=== PATIENT | female | born 1980 | race Caucasian/White ===

== ENCOUNTER 2017-03-15 01:50 | Inpatient (IN) | payer BC ==
[~2017-03-15] VITALS: Ht 157.5 cm; Wt 64.1 kg
[~2017-03-15 01:50] MED LIST: METH0.2T39 PO; MTR600X OR; PRENTAB26 PO
[2017-03-15] MEDS ORDERED: LACTATED RINGER'S 1000ML 1,000 ML IV PRN (02:17)
[2017-03-15] MEDS ORDERED: PENICILLIN G POTASSIUM IV 3 MU in DEXTROSE 5% 100ML 100 ML IV PRN (02:30)
[2017-03-15 02:35] LABS: MEAN CELL VOLUME 90.3 fL (80-100); MEAN CORPUSCULAR HEMOGLOBIN 30.5 pg (25-34); MEAN CORPUSCULAR HGB CONC 33.8 g/dl (32-36); MEAN PLATELET VOLUME 10.6 fL (7.4-10.4); PLATELET COUNT 163 K/uL (130-400); RED BLOOD COUNT 4.43 M/uL (4.2-5.4); WHITE BLOOD COUNT 7.82 K/uL (4.8-10.8)
[2017-03-15] MEDS ORDERED: PENICILLIN G POTASSIUM IV 6 MU in DEXTROSE 5% 250ML 250 ML IV STA (02:37)
[2017-03-15] MEDS ORDERED: FERR1TAB23 (02:38)
[2017-03-15 02:39] VITALS: Ht 157.5 cm; Wt 64.1 kg
--- NOTE | 2017-03-15 02:50 | HISTORY & PHYSICAL EXAMINATION ---
DATE OF ADMISSION: 03/15/2017 CHIEF COMPLAINT: Contractions. HISTORY OF PRESENT ILLNESS: The patient is a 37-year-old G5, P1-0-3-1 at 40 weeks and 4 days of gestation presenting with contractions that started about 2 hours ago. They have been occurring every 3 minutes and painful. She desires epidural for pain. She denies leakage of fluid or vaginal bleeding. She reports good movements. She denies TO/ Change in vision / N&V/ Chetp pain/ SOB/ Fever or chills. Her has been uncomplicated except: 1. Advanced maternal age. 2. GBS positive. PAST MEDICAL HISTORY: As above and denies any other medical problems. PAST SURGICAL HISTORY: D&C x3 for spontaneous abortions. SOCIAL HISTORY: The patient denies smoking, alcohol or drug use. GYNECOLOGIC HISTORY: The patient denies any history of STDs including Chlamydia, gonorrhea, and herpes. OBSTETRICAL HISTORY: The patient had 3 spontaneous abortions and 1 full term spontaneous vaginal delivery in 2013. ALLERGIES: No known drug allergies. MEDICATIONS: vitamins and iron sulfate, Zantac 150 mg daily. LABORATORY DATA: Blood type is O positive, antibody screen negative. H&H was 11.11/33. Rubella titer positive. RPR nonreactive. Hepatitis B surface antigen negative. HIV negative, GC chlamydia cultures were negative. Urine culture was negative. One hour Glucola was 84 mg per deciliter. Repeat H&H was 9.6/29.3 and GBS culture was positive. PHYSICAL EXAMINATION: GENERAL: The patient is alert, oriented x3, not in acute distress. VITAL SIGNS: Blood pressure is 117/69, temperature 98.6, pulse 75, respirations 18. CARDIOVASCULAR SYSTEM: S1, S2, RRR. LUNGS: Clear to auscultation bilaterally. ABDOMEN: Soft, gravid, Jose 7-1/2 to 8 pounds. EXTREMITIES: Nontender, no edema. PELVIC: Cervix is 5 cm dilated, 90% effaced, -2 vertex with bulging membranes. heart rate 130s, category 1. [place] contractions every 3-4 minutes. ASSESSMENT AND PLAN: The patient is a 37-year-old 5, para 1-0-3-1 at 40 weeks and 4 days of gestation presenting in active labor with regular contractions. Vital signs stable, afebrile. GBS positive, heart rate reassuring. Plan is admit her, start IV fluids and epidural for pain per patient request and anticipate spontaneous vaginal delivery. All questions were answered. MTDD
[2017-03-15] MEDS ORDERED: BUPIVACAINE 0.25% 30 ML VIAL ONE (02:51)
[2017-03-15] MEDS ORDERED: EpHEDrine SULFATE INJ 50 MG/ML AMP ONE (02:51)
[2017-03-15] MEDS ORDERED: FENTANYL CITRATE INJ 50 MCG/1 ML 2 ML VIAL ONE (02:51)
[2017-03-15] MEDS ORDERED: FENTANYL 2MCG/ML ROPIV 1.25MG/ML 100ML BAG EPI ONE (02:51)
[2017-03-15] MEDS: LACTATED RINGER'S 1000ML 1,000 ML IV SCH ×2 (03:22→08:07)
[2017-03-15] MEDS ORDERED: LACTATED RINGER'S 1000ML 500 ML IV PRN (04:21)
[2017-03-15] MEDS ORDERED: NALOXONE HCL INJ 1 MG in SODIUM CHLORIDE 0.9% 1000ML 1,000 ML IV PRN (04:21)
[2017-03-15] MEDS ORDERED: DiphenhydrAMINE HCL 50 MG/ML VIAL IV PRN ×2 (04:30→09:30)
[2017-03-15] MEDS ORDERED: ONDANSETRON INJ 2 MG/ML 2 ML VIAL IV PRN ×2 (04:30→09:30)
[2017-03-15] MEDS ORDERED: NALBUPHINE HCL INJ 10 MG/ML AMP IV PRN (04:30)
[2017-03-15] MEDS ORDERED: NALOXONE HCL INJ 0.4 MG/1 ML VIAL/CARP IV PRN (04:30)
[2017-03-15] MEDS ORDERED: EpHEDrine SULFATE INJ 50 MG/ML AMP IV PRN (04:30)
[2017-03-15] MEDS ORDERED: PROMETHAZINE HCL INJ 6.25 MG in SODIUM CHLORIDE 0.9% 50ML 50 ML IV PRN (04:30)
[2017-03-15] MEDS: FENTANYL 2MCG/ML ROPIV 1.25MG/ML 100ML BAG EPI PRN ×2 (04:32→06:57)
[2017-03-15] MEDS ORDERED: OXYTOCIN INJ 20 UNITS in LACTATED RINGER'S 1000ML 1,000 ML IV SCH (09:20)
[2017-03-15] MEDS ORDERED: MAGNESIUM HYDROXIDE SUSP 30 ML UDC PO PRN (09:30)
[2017-03-15] MEDS ORDERED: BENZOCAINE 20% AER SPR 82.5 GM CAN EXT PRN ×2 (09:30→13:00)
[2017-03-15] MEDS ORDERED: HYDROCORTISONE ACETATE 25 MG SUPP PR PRN ×2 (09:30→13:00)
[2017-03-15] MEDS ORDERED: OXYCODONE/ACETAMINOPHEN 5-325 TAB PO PRN ×3 (09:30→13:00)
[2017-03-15] MEDS ORDERED: SUPERCREAM 0.870 % 15GM JAR EXT PRN ×2 (09:30→13:00)
[2017-03-15] MEDS ORDERED: SENNA 8.6 MG TAB PO PRN (09:30)
[2017-03-15] MEDS ORDERED: ZOLPIDEM TARTRATE 5 MG TAB PO PRN (09:30)
[2017-03-15] MEDS ORDERED: PROMETHAZINE HCL INJ 25 MG in SODIUM CHLORIDE 0.9% 50ML 50 ML IV PRN (09:30)
[2017-03-15] MEDS ORDERED: LANOLIN OINT EXT PRN ×4 (09:30→13:00)
[2017-03-15] MEDS ORDERED: IBUPROFEN 600 MG TAB PO PRN (09:30)
[2017-03-15] MEDS ORDERED: OXYTOCIN 30 UNITS/500ML NSS IV ONE (10:17)
[2017-03-15] MEDS ORDERED: ACETAMINOPHEN/CODEINE 300/30MG TAB PO PRN ×2 (13:00)
[2017-03-15] MEDS ORDERED: OXYTOCIN 30 UNITS/500ML NSS IV PRN (13:00)
[2017-03-15] MEDS ORDERED: ACETAMINOPHEN 325 MG TAB PO PRN (13:00)
[2017-03-15] MEDS ORDERED: SIMETHICONE 80 MG CHEW PO SCH (13:00)
--- NOTE | 2017-03-15 13:13 | Anesthesia Procedure Note ---
Anesthesia Epidural Removal Nt Date & Time Mar 15, 2017 at 13:13 Vital Signs Pain Intensity: 0.0 Notes Mental Status: alert / awake / arousable, participated in evaluation Nausea / Vomiting: adequately controlled Pain: adequately controlled Airway Patency, RR, SpO2: stable & adequate BP & HR: stable & adequate Hydration State: stable & adequate Neuraxial Anesthesia: was administered Anesthetic Complications: no major complications apparent, pt satisfied with anesthetic care Epidural: removed without complications, with tip intact
[2017-03-15] MEDS: IBUPROFEN 600 MG TAB PO PRN ×2 (13:56→19:13)
[2017-03-15 15:30] VITALS: BP 98/65; PULSE 112; TEMP 36.8; O2SAT 97
[2017-03-15] MEDS: DOCUSATE SODIUM 100 MG CAP PO SCH (19:12)
[2017-03-15 19:15] VITALS: BP 112/71; PULSE 80; TEMP 36.5; O2SAT 99
[2017-03-15] MEDS ORDERED: DOCUSATE SODIUM 100 MG CAP PO SCH (20:00)
--- NOTE | 2017-03-15 23:35 | DELIVERY SUMMARY ---
DATE OF OPERATION: 03/15/2017 DELIVERY NOTE: The patient delivered a live male in left occiput anterior presentation. There was a nuchal cord which was easily reduced. Infant was delivered. Cord was clamped after 1 minute and 30 seconds. Infant was handed to the pediatric team. Apgars 8 and 9. Placenta was spontaneously delivered. Inspection of placenta shows a grossly normal placenta with a 3-vessel cord. Inspection of the perineum showed a second-degree midline laceration which was repaired in layers with 2-0 Vicryl. There was good hemostasis at end of the repair. Rectal exam post repair showed good sphincter tone. No sutures were palpated in the rectum. ESTIMATED BLOOD LOSS: 400 mL. All instruments were removed from the vagina and accounted for x2 including sponge, needles. Baby and mother are doing well in recovery. I attest to the content of the Intraoperative Record and any orders documented therein. Any exceptions are noted below. RAVINDRA
[2017-03-15 23:55] VITALS: BP 97/57; PULSE 62; TEMP 36.8
[2017-03-16] MEDS: IBUPROFEN 600 MG TAB PO PRN ×4 (01:35→16:49)
[2017-03-16 04:20] VITALS: BP 100/61; PULSE 80; TEMP 37.1
[2017-03-16 08:00] VITALS: BP 108/69; PULSE 76; TEMP 36.8; O2SAT 98
[2017-03-16] MEDS ORDERED: PRENATAL VITAMIN TAB PO SCH (08:00)
[2017-03-16] MEDS ORDERED: FERROUS SULFATE 325 MG TAB PO SCH (08:00)
[2017-03-16] MEDS: DOCUSATE SODIUM 100 MG CAP PO SCH ×2 (08:19→20:00)
[2017-03-16] MEDS: FERROUS SULFATE 325 MG TAB PO SCH (08:19)
[2017-03-16] MEDS: PRENATAL VITAMIN TAB PO SCH (08:20)
--- NOTE | 2017-03-16 09:33 | OB/GYN Progress Note ---
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 Subjective conversation w/ patient, physical exam Ambulation: ambulating normally Voiding: no voiding problems Passing Gas: Yes Diet Tolerance: Regular Diet Lochia: Small Feeding Type: Breast Feeding Pain: 07/06 Notes: Doing well. No concerns. Ambulating without difficulty. Tolerating regular diet. Lochia minimal. Objective Vital Signs Date Time Temp Pulse Resp B/P (MAP) Pulse Ox O2 Delivery O2 Flow Rate FiO2 03/16/17 08:00 36.8 76 20 108/69 (82) 98 Room Air 03/16/17 04:20 37.1 80 16 100/61 (74) Room Air 03/15/17 23:55 36.8 62 18 97/57 (70) Room Air 03/15/17 23:55 Room Air 03/15/17 19:15 36.5 80 18 112/71 (85) 99 Room Air 03/15/17 15:30 36.8 112 18 98/65 (76) 97 Room Air 03/15/17 15:30 Room Air Physical Exam General Appearance: WELL-APPEARING Respiratory/Chest: chest non-tender, lungs clear Cardiovascular: regular rate, rhythm Abdomen: normal bowel sounds, soft Fundus: Firm Extremities: normal range of motion, non-tender, no calf tenderness Laboratory Results Last 24 Hours Test 03/16/17 07:11 Hemoglobin 11.1 g/dL Hematocrit 33.0 % Assessment and Plan Post- Day Number: 1 Continue Routine Care: -Continue routine care -Anticipate D/C home tomorrow
[2017-03-16 15:30] VITALS: BP 126/72; PULSE 83; TEMP 36.7; O2SAT 99
[2017-03-16] MEDS ORDERED: BISACODYL 5 MG TABEC PO SCH (20:00)
[2017-03-16] MEDS ORDERED: BISACODYL 5 MG TABEC PO ONE (22:00)
[2017-03-16 23:30] VITALS: BP 110/68; PULSE 82; TEMP 36.8; O2SAT 97
[2017-03-17] MEDS: IBUPROFEN 600 MG TAB PO PRN ×2 (04:05→08:49)
[2017-03-17] MEDS ORDERED: BISACODYL 10 MG SUPP PR PRN ×2 (07:00→09:30)
[2017-03-17 08:13] LABS: HEMATOCRIT 31.3 % (37-47); MEAN CORPUSCULAR HEMOGLOBIN 30.6 pg (25-34); MEAN CORPUSCULAR HGB CONC 32.6 g/dl (32-36); MEAN PLATELET VOLUME 10.3 fL (7.4-10.4); PLATELET COUNT 168 K/uL (130-400); RED BLOOD COUNT 3.33 M/uL (4.2-5.4); WHITE BLOOD COUNT 7.15 K/uL (4.8-10.8)
[2017-03-17] MEDS: FERROUS SULFATE 325 MG TAB PO SCH (08:45)
[2017-03-17] MEDS: PRENATAL VITAMIN TAB PO SCH (08:45)
[2017-03-17] MEDS: DOCUSATE SODIUM 100 MG CAP PO SCH (08:45)
[2017-03-17 09:30] VITALS: BP 123/87; PULSE 91; TEMP 36.7; O2SAT 99
[2017-03-17] MEDS ORDERED: MTR600X PO (10:24)
--- NOTE | 2017-03-17 10:24 | OB/GYN Progress Note ---
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 Patient is seen and examined. She feels well, no complaints. Ambulating without dizziness Voiding without difficulty Tolerating regular diet with out N&V Bleeding is minimal No fever/ chills/ CP/ SOB/ N&V/ Leg pain Breast feeding without problems Date Time Temp Pulse Resp B/P (MAP) Pulse Ox O2 Delivery O2 Flow Rate FiO2 03/16/17 23:30 Room Air 03/16/17 23:30 36.8 82 16 110/68 (82) 97 Room Air 03/16/17 15:30 36.7 83 18 126/72 (90) 99 Room Air 03/16/17 15:30 99 Room Air PE: General: Alert, orientedx3, NAD Abd: soft, NT, fundus firm, below Umbilicus Perineum intact, Lochia rubra minimal Ext; NT, no edema AP: 37 yo s/p , ppd# 2 VSS Afebrile doing well Continue routine care All questions were answered D/C home ,f/u in office
--- NOTE | 2017-03-17 10:25 | Discharge Instructions ---
Discharge Instructions Date of Service Mar 17, 2017. Admission Reason for Admission: Uterine Contractions At Greater Than 20 Weeks Discharge Discharge Diagnosis / Problem: Discharge Goals Goal(s): Routine recovery after delivery Activity Recommendations Activity Limitations: as noted below ACTIVITY RECOMMENDATIONS: * Gradual return to full activity over the next 2-3 weeks. * No lifting - nothing heavier than baby over the next 2-3 weeks. * Do not engage in vigorous exercise, sexual activity or sports until cleared by your physician. * Do not drive or operate any motorized equipment until cleared by your physician. * You may shower/bathe daily. BREAST CARE: If you are not breast feeding: * Wear a supportive bra 24 hours a day for one to two weeks. * Avoid stimulating your breasts and nipples as much as possible during the first few weeks after delivery. * When taking a shower, have the warm water hit your back, not breasts. * When your breasts feel full, apply ice packs. Usually three to four times a day helps ease the discomfort. * Take a mild pain medication (Tylenol/Motrin) when you are uncomfortable. If breast feeding: * Use breast milk to lubricate nipples. Lansinoh cream may be used for sore nipples. You do not need to remove cream prior to breast feeding. If using a different brand of cream, check the label for directions regarding removal of cream prior to nursing. * Wear a supportive bra. * If having problems with breasts or breast feeding, call a furniture sales consultant or your health care provider. EPISIOTOMY CARE: After delivery, if you have an episiotomy (stitches), the following steps will ease discomfort and aid healing. * For the first 24 hours after delivery, place ice packs next to your episiotomy to help reduce swelling. * After the first 24 hour-period, sitz baths, either portable or in the tub, are suggested. A shower with a shower arm sprayed over the episiotomy may be comforting. * Silvia care should be done after each voiding and bowel movement. Squirt warm water from a plastic bottle over the perineum (region of the body between the anus and urinary opening) and pat dry. * Use Dermoplast to ease discomfort. Shake container. [place] directly over the episiotomy. * Place a Tucks on a clean sanitary pad next to your episiotomy. OVER THE COUNTER MEDICATION: * For discomfort or pain, you may use Acetaminophen (Tylenol), Ibuprofen (Advil ), or Naproxen (Aleve) following the package directions. * For constipation you may use Colace following the package directions. SPECIAL CARE INSTRUCTIONS: When you are discharged from the hospital, it is important for you to follow the instructions listed below: * During the first week at home, you should be able to care for yourself and your baby. In addition, the usual light household activities are encouraged. * Limit your activities to the way you feel. Do not try to clean the house or move furniture. Be sensible. * If you actively engage in sports and have done so up until the time of your delivery, you may resume these activities as soon as you feel able. This may take up to one month or even longer. Use good judgment. * Continue to take your vitamins for at least six weeks after the of your baby. * Your diet need not be limited unless you were on a special diet before your delivery. Breast-feeding mothers need around 2500 calories per day and at least 64-80 ounces of fluid per day (8 to 10 glasses). * You should eat foods from the four major food groups. Crash diets or fad diets are to be avoided. Eating lean meats, fresh fruits and vegetables, low-fat dairy products, high fiber foods and a regular exercise program, will help you get back to your pre- weight without putting your health at risk. * Constipation is sometimes a problem after delivery. Take a mild laxative as needed. If breast feeding, Milk of Magnesia is acceptable to use. You may use a suppository or Fleets enema if no episiotomy. * A daily shower or tub bath is suggested. Be sure to thoroughly and gently dry the perineum. * A bloody vaginal discharge will usually continue until around four weeks post . A small amount of bleeding may continue for as long as six weeks. Vaginal discharge changes from the bright red bleeding after delivery to pink then brownish and finally yellowish-pink before becoming white and disappearing. * Bleeding may increase with activity. Your first period may come in 4-8 weeks. If you are breast feeding, your period may be delayed even longer. * Gilberts (sex) can begin whenever both you and your partner feel comfortable and do not have any form of genital infection. It is recommended that you wait until after your return appointment and discuss with your physician. If you have questions, please talk to your health care practitioner. A condom should be used to prevent infection and . * Foreplay, gentle intercourse and lubrication is very important the first several times to prevent pain. A water-based lubricant such as K-Y jelly or Astroglide may be used. * Tampons may be used six weeks after delivery. * Douching should be avoided for 6 weeks after delivery. * If you have RH negative blood and your baby is RH positive, you will receive RHOGAM by injection prior to discharge. The nurse will give you a card to keep with you that has the date and place that you received RHOGAM after delivery. * During your care, you had a Rubella screen done to check for the presence of rubella antibodies in your blood. If your test was negative, you will receive a Rubella vaccine prior to discharge. This vaccine may cause a fever, soreness at the injection site and flu-like symptoms. If these symptoms persist, notify your health care practitioner. is not advised for three months after a Rubella vaccine. There is a higher chance of having a baby with defects if conceived within three months of getting the vaccine. * If you were discharged 24 hours from delivery or before 48 hours: Visiting nurses will come to your home 48 hours after discharge to assess you and your baby. The visiting nurse will meet with you while you are in the hospital to arrange a time and get directions to your home. * Verbalizes understanding of car seat law as reviewed with patient nursing. * Car Seat hand-out given and reviewed with patient by nursing. * Shaken baby information reviewed with patient by nursing. Call you doctor if: * Heavy bleeding (saturating several pads an hour) or passing clots the size of your fist. * A fever >101 degrees F (38.3 degrees C) on two occasions four hours apart and/or chills. * Unusual pain in the pelvic or vaginal areas. * "Baby Blues" lasting longer than two weeks. If you have any questions or concerns, call your health care practitioner at . FOLLOW-UP VISIT: * Please call the office at to schedule a 6 week examination. It is important you keep this appointment. * It is important for you to make arrangements for either yearly or twice yearly check-ups thereafter. . Current Hospital Diet Patient's current hospital diet: Regular OB Diet Discharge Diet Recommended Diet: Regular Diet Pending Studies Studies pending at discharge: no Medical Emergencies . Who to Call and When: Medical Emergencies: If at any time you feel your situation is an emergency, please call 911 immediately. . Non-Emergent Contact Non-Emergency issues call your: Surgeon Call Non-Emergent contact if: temperature is above 100.5, your pain is not controlled . . "Provider Documentation" section prepared by Mahesh Wagner. . VTE Core Measure Inpt VTE Proph given/why not?: Treatment not indicated, Treatment not tolerated
[2017-03-17 13:56] VITALS: BP_DIAS 87; PULSE 91; TEMP 36.7
== END 2017-03-17 14:10 | disposition home or self-care (01) | DRG 775 ==
LOC: C.OPB 01:50 → C.LD 01:51 → C.OPB 02:18 → C.LD 02:18 → C.OBG 15:39
PROVIDERS: ADMIT Obstetrics & Gynecology; ATTEND Obstetrics & Gynecology
PROC: 0KQM0ZZ Repair Perineum Muscle, Open Approach (ICD-10-PCS; principal; 2017-03-15)
PROC: 10E0XZZ Delivery of Products of Conception, External Approach (ICD-10-PCS; principal; 2017-03-15)
DX: O70.1 Second degree perineal laceration during delivery (principal); O09.523 Supervision of elderly multigravida, third trimester; O99.820 Streptococcus B carrier state complicating pregnancy; O69.81X1 Labor and delivery complicated by cord around neck, without compression, fetus 1; Z37.0 Single live birth; Z3A.40 40 weeks gestation of pregnancy